=== PATIENT | female | born 1985 | race Caucasian/White ===

== ENCOUNTER 2016-11-30 23:13 | Emergency (ER) | payer OTHER ==
[~2016-11-30] VITALS: Ht 172.7 cm; Wt 68.0 kg
[2016-11-30 23:41] VITALS: Ht 172.7 cm; Wt 68.0 kg
[2016-12-01] MEDS ORDERED: BENZ100C70 PO (01:26)
[2016-12-01] MEDS ORDERED: ACET500C5 PO (01:26)
[2016-12-01] MEDS ORDERED: IBUP-1542 PO (01:26)
[2016-12-01] MEDS ORDERED: UDROBDM PO (01:26)
--- NOTE | 2016-12-01 02:18 | ERD ---
ER Documentation Chief Complaint Date/Time DATE: 12/01/16 TIME: 02:15 Chief Complaint Fever, sore throat and vomiting HPI Patient is a 31-year-old female who presents to the ED with fever, sore throat and cough 1 day. She states that she developed the symptoms this morning. She has had tactile fever at home. She complains of pain with swallowing. She denies headache, dizziness, ear pain or nausea vomiting or diarrhea. Denies abdnominal pain. States her two daughter have had similar symptoms at home. She has not taken any medication for her symptoms. She denies shortness of breath, difficulty breathing. She denies leg pain or swelling. ROS All systems reviewed and are negative except as per history of present illness. Medications Home Meds Active Scripts Ibuprofen* (Motrin*) 600 Mg Tab, 600 MG PO Q6, #30 TAB Prov:MAU MCNEILC 12/01/16 Acetaminophen* (Tylophen*) 500 Mg Capsule, 1 CAP PO Q6H Y for PAIN AND OR ELEVATED TEMP, #20 CAP Prov:MAU MCNEILC 12/01/16 Guaifenesin-Dextromethorphan* (Robitussin* DM) 100MG/10MG/5ML Syrup, 5 ML PO Q4H for 14 Days, ML Prov:MAU MCNEIL PA-C 12/01/16 Benzonatate* (Tessalon Perle*) 100 Mg Capsule, 100 MG PO Q8H Y for COUGH for 14 Days, CAP Prov:MAU MCNEIL-C 12/01/16 Allergies Allergies: Coded Allergies: No Known Allergy (Unverified , 12/01/16) PMhx/Soc Medical and Surgical Hx: pt denies Surgical Hx History of Surgery: No Anesthesia Reaction: No Hx Neurological Disorder: No Hx Respiratory Disorders: No Hx Cardiac Disorders: Yes (HTN) Hx Psychiatric Problems: No Hx Miscellaneous Medical Probl: No Hx Alcohol Use: No Hx Substance Use: No Hx Tobacco Use: No Smoking Status: Never smoker FmHx Family History: No coronary disease, No diabetes, No other Physical Exam Vitals Vital Signs Date Time Temp Pulse Resp B/P Pulse Ox O2 Delivery O2 Flow Rate FiO2 11/30/16 23:41 98.3 11 24 139/89 99 Physical Exam GENERAL: Well-developed, well-nourished female. Appears in no acute distress. HEAD: Normocephalic, atraumatic. EYES: Pupils are equally reactive bilaterally. EOMs grossly intact. No conjunctival erythema. ENT: Moist mucous membranes. No uvula deviation. No kissing tonsils. No exudates. NECK: Supple. No lymphadenopathy or thyromegaly. No meningismus. negative kernig. negative brudinski. LUNG: Clear to auscultation bilaterally. No rhonchi, wheezing, rales or coarse breath sounds. HEART: Regular rate and rhythm. No murmurs, rubs or gallops. NEUROLOGIC: Alert and oriented. Moving all four extremities. 5/5 strength in all extremities. Normal speech. Steady gait. SKIN: Normal color. Warm and dry. No rashes or lesions. Capillary refill < 2 seconds Procedures/MDM ER COURSE: I kept the patient and/or family informed of laboratory and diagnostic imaging results throughout the emergency room course. MEDICAL DECISION MAKING: This is a 31 year old female who presents with fever, cough and runny nose. Vital signs were reviewed. Patient is afebrile. Patient is not hypoxic. Patient is not toxic or ill appearing. Patient has a uri of viral etiology. Low suspicion for pneumonia, PE, pneumothorax, ACS, epiglottitis, obstruction, TB, pertussis, meningitis, sepsis. Low suspicion for peritonsillar abscess, strep pharyngitis, mononucleosis, dental abscess. I do not think a chest xray is warranted at this time as patient has a normal lung examination and does not show signs of respiratory distress or difficulty breathing. Her symptoms started today and she has sick daughters at home. DISCHARGE: At this time, patient is stable for discharge and outpatient management with no new complaints during the ER course. Patient was sent home with ibuprofen, Tylenol, Robitussin-DM and Tessalon Perles. Patient will be discharged home with instructions to recheck for new or worsening symptoms such as fever, nausea , weakness, LOC and to follow up with primary care in the next 1-2 days. Patient was advised to return to the ER for any new or worsening symptoms. Plan was discussed and patient and/or family understands and agrees. Home instructions were given. Departure Diagnosis: Primary Impression: Sore throat Condition: Stable Patient Instructions: Self-Care for Sore Throats Additional Instructions: Llame al doctor MAANA y emmy mitzi YASIR PARA DENTRO DE 1-2 DIAZ.Dgale a la secretaria que nosotros le instruimos hacer esta yasir.Avise o llame si ramirez condicin se empeora antes de la yasir. Regresa aqui si peor o no mejor. MAU MCNEIL PA-C Dec 01, 2016 02:18
== END 2016-12-01 02:23 | disposition home or self-care (01) ==
LOC: FTE 23:13
DX: J02.9 Acute pharyngitis, unspecified (principal); I10 Essential (primary) hypertension
CPT/HCPCS: 99283